=== PATIENT | female | born 1960 | race Caucasian/White ===

== ENCOUNTER 2018-03-22 08:32 | Emergency (ER) | payer MEDICAID ==
[~2018-03-22] VITALS: Ht 167.6 cm; Wt 77.1 kg
--- NOTE | 2018-03-22 08:35 | NUR ---
SEEN AND EXAMINED BY DR. CARDOZA.
--- NOTE | 2018-03-22 08:36 | NUR ---
PT [id number], HAD A SYNCOPAL EPISODE WHILE IN THE BATHROOM, PT IS AAOX2, LETHARGIC, NOT IN RESP DISTRESS, VSS, KEPT RESTED AND COMFORTABLE, HOOKED ON MONITOR, EKG DONE, WILL CONTINUE TO MONITOR
--- NOTE | 2018-03-22 08:39 | NUR ---
LABS DRAWNED AND SENT TO LAB.
[2018-03-22 08:54] LABS: BASOPHILS % (AUTO) 0.3 % (0.0-2.0); EOSINOPHILS % (AUTO) 0.3 % (0.0-6.0); HEMATOCRIT 40 % (33-45); HEMOGLOBIN 13.3 g/dL (11.5-14.8); MEAN CORPUSCULAR HGB CONC 33 g/dl (31.0-36.0); MEAN CORPUSCULAR VOLUME 90 fL (82-100); MONOCYTES # (AUTO) 0.5 /CMM (0.1-1.30); MONOCYTES % (AUTO) 13.2 % (2.0-12.0); NEUTROPHILS # (AUTO) 1.4 /CMM (1.8-8.9); NEUTROPHILS % (AUTO) 35.2 % (43.0-81.0); PLATELET COUNT (AUTO) 224 /CMM (150-450); RED BLOOD CELL COUNT(AUTO) 4.45 MIL/uL (4.0-5.2)
[2018-03-22] MEDS ORDERED: IV NS 0.9% 1,000 ML BAG IV ONE ×3 (09:00→12:30)
[2018-03-22 09:02] LABS: CALCIUM, SERUM 8.5 mg/dL (8.5-10.1); CARBON DIOXIDE 24 mmol/L (21-32); CHLORIDE 104 mmol/L (98-107); GLUCOSE 146 mg/dL (74-106); POTASSIUM 3.7 mmol/L (3.5-5.1); SODIUM SERUM 137 mmol/L (136-145); UREA NITROGEN, BLOOD 13 mg/dL (7-18)
[2018-03-22 09:08] LABS: ALANINE AMINOTRANSFERASE 44 U/L (12-78); ALBUMIN 3.2 g/dL (3.4-5.0); ALKALINE PHOSPHATASE 65 U/L (46-116); ASPARTATE AMINOTRANSFERASE 38 U/L (15-37); BILIRUBIN,DIRECT 0.1 mg/dL (0.0-0.2); BILIRUBIN,TOTAL 0.2 mg/dL (0.2-1.0)
[2018-03-22] MEDS ORDERED: IV NS 0.9% 250 ML IV ONE (09:17)
[2018-03-22] MEDS ORDERED: IOHEXOL-350 100 ML VIAL IV ONE (09:17)
[2018-03-22] MEDS ORDERED: CT SWABBABLE VALVE TRANS SET 1 EA INFUS.SET MC ONE (09:17)
--- NOTE | 2018-03-22 09:42 | NUR ---
PT BACK FROM CT PULMO ANGIOGRAM
--- NOTE | 2018-03-22 09:47 | NUR ---
pt c/o continued back pain. notified Dr Hardy, new order received. notified primary RN for administration.
[2018-03-22] MEDS ORDERED: KETOROLAC TROMETHAMINE INJ 30 MG/ML VIAL ONE (09:58)
[2018-03-22] MEDS ORDERED: KETOROLAC TROMETHAMINE INJ 30 MG/ML VIAL IV ONE (10:00)
--- NOTE | 2018-03-22 10:05 | NUR ---
URINE SAMPLE SENT TO LAB
[2018-03-22 10:20] LABS: APPEARANCE,URINE Clear (CLEAR); BILIRUBIN,URINE Negative (NEGATIVE); BLOOD, URINE Negative Ery/uL (NEGATIVE); COLOR,URINE Yellow (YELLOW); KETONES,URINE 15 (NEGATIVE); LEUKOCYTE ESTERASE ,URINE Negative (NEGATIVE); NITRITE, URINE Negative (NEGATIVE); PROTEIN,URINE Negative (NEGATIVE); UGLUCOSE Negative (NEGATIVE); UROBILINOGEN,URINE 0.2 EU/dL (0.2)
[2018-03-22 10:22] LABS: BACTERIA,URINE Rare /HPF (None Seen); RBC,URINE 0-2 /HPF (0-2); SQUAMOUS EPITHELIAL CELL,UR Few /HPF (None Seen); WBC,URINE 0-2 /HPF (0-3)
--- NOTE | 2018-03-22 11:39 | NUR ---
PT AMBULATED 100 FT, + DIZZYNESS, - PAIN
[2018-03-22] MEDS ORDERED: AZIT250T13 PO (14:22)
[2018-03-22] MEDS ORDERED: IV NS 0.9% 500 ML BAG IV ONE (14:30)
--- NOTE | 2018-03-22 14:30 | NUR ---
ADDENDUM: Intravenous End Time Documentation: Normal saline 1 liter (IV-WO) : start time: 1430 PM ; end time: 1530 PM : IV site: [facility] # 18 Port # 1
--- NOTE | 2018-03-22 15:07 | NUR ---
PT AWAITING TRANSFER TO [facility], PT STABLE AND COMFORTABLE AT THIS TIME
--- NOTE | 2018-03-22 15:29 | NUR ---
[facility] TRANSFER INFO: DIRECT ADMIT TO ROOM 218-A SOFYA PERRY REPORT: [phone] AMBULANCE INFO TO FOLLOW PER MENTAL HEALTH SPECIALIST.
--- NOTE | 2018-03-22 15:39 | NUR ---
AMBULANCE ETA [id number]
--- NOTE | 2018-03-22 15:48 | NUR ---
REPORT GIVEN TO NATANAEL COWART @ [facility], PT RESTING AND STABLE AT THIS TIME
--- NOTE | 2018-03-22 18:10 | NUR ---
PT TRTANSPORTED TO [facility] VIA AMBULANCE BLS, PT STABLE AND COMFORTABLE
[2018-03-22 18:12] VITALS: BP 110/74
== END 2018-03-22 18:13 | disposition short-term general hospital (02) ==
LOC: ER 08:34
DX: R55 Syncope and collapse (principal); I95.9 Hypotension, unspecified; J06.9 Acute upper respiratory infection, unspecified
CPT/HCPCS: 36415; 70450-TC; 71045-TC; 80048-TC; 80076-TC; 81000-TC; 83605-TC; 84484-TC; 85025-TC; 85730-TC; 87040-TC; 87400; J1885; J7030; J7050; Q9967

== ENCOUNTER 2018-03-24 21:33 | Emergency (ER) | payer MEDICAID ==
[~2018-03-24] VITALS: Ht 160 cm; Wt 68.0 kg
[~2018-03-24 21:33] MED LIST: AZIT250T13 PO
--- NOTE | 2018-03-24 21:55 | NUR ---
PT BIBS. COMP OF "NAUSEA AND VOMITING SINCE LEAVING HOSPITAL TODAY MORNING" NO SOB NOTED. NO ACUTE DISTRESS AT THIS TIME. PT AOX4. AMBULATORY W.STEADY GAIT. AWAITING MD COOK.
[2018-03-24] MEDS ORDERED: ONDANSETRON HCL/PF 4 MG/2 ML VIAL ONE (22:17)
[2018-03-24] MEDS ORDERED: ONDANSETRON HCL/PF 4 MG/2 ML VIAL IVP ONE (22:30)
[2018-03-24] MEDS ORDERED: IV NS 0.9% 1,000 ML BAG IV ONE (22:30)
[2018-03-24 23:50] LABS: BASOPHILS % (AUTO) 0.2 % (0.0-2.0); EOSINOPHILS % (AUTO) 0.1 % (0.0-6.0); HEMATOCRIT 37 % (33-45); HEMOGLOBIN 12.4 g/dL (11.5-14.8); LYMPHOCYTES # (AUTO) 0.8 /CMM (0.8-4.8); LYMPHOCYTES % (AUTO) 22.1 % (20.0-44.0); MEAN CORPUSCULAR HGB CONC 34 g/dl (31.0-36.0); MEAN CORPUSCULAR VOLUME 89 fL (82-100); MONOCYTES # (AUTO) 0.4 /CMM (0.1-1.30); MONOCYTES % (AUTO) 10.9 % (2.0-12.0); NEUTROPHILS # (AUTO) 2.3 /CMM (1.8-8.9); NEUTROPHILS % (AUTO) 66.7 % (43.0-81.0); PLATELET COUNT (AUTO) 214 /CMM (150-450); RED BLOOD CELL COUNT(AUTO) 4.09 MIL/uL (4.0-5.2); WHITE BLOOD COUNT (AUTO) 3.5 K/uL (4.3-11.0)
[2018-03-25 00:02] LABS: APPEARANCE,URINE Clear (CLEAR); BILIRUBIN,URINE Negative (NEGATIVE); BLOOD, URINE Negative Ery/uL (NEGATIVE); COLOR,URINE Light yellow (YELLOW); KETONES,URINE Negative (NEGATIVE); LEUKOCYTE ESTERASE ,URINE Negative (NEGATIVE); NITRITE, URINE Negative (NEGATIVE); PROTEIN,URINE Negative (NEGATIVE); UGLUCOSE Negative (NEGATIVE); UROBILINOGEN,URINE 0.2 EU/dL (0.2)
[2018-03-25 00:05] LABS: CALCIUM, SERUM 8.5 mg/dL (8.5-10.1); CARBON DIOXIDE 26 mmol/L (21-32); CHLORIDE 100 mmol/L (98-107); CREATININE 0.9 mg/dL (0.6-1.3); GLUCOSE 124 mg/dL (74-106); POTASSIUM 4.8 mmol/L (3.5-5.1); SODIUM SERUM 132 mmol/L (136-145); UREA NITROGEN, BLOOD 10 mg/dL (7-18)
[2018-03-25 00:11] LABS: ALANINE AMINOTRANSFERASE 41 U/L (12-78); ALKALINE PHOSPHATASE 65 U/L (46-116); ASPARTATE AMINOTRANSFERASE 33 U/L (15-37); BILIRUBIN,DIRECT 0.1 mg/dL (0.0-0.2); BILIRUBIN,TOTAL 0.3 mg/dL (0.2-1.0); LIPASE 97 U/L (73-393); TOTAL PROTEIN, SERUM 6.7 g/dL (6.4-8.2)
[2018-03-25 00:49] VITALS: BP 148/81
== END 2018-03-25 00:50 | disposition home or self-care (01) ==
LOC: ER 21:48
DX: R11.2 Nausea with vomiting, unspecified (principal)
CPT/HCPCS: 36415; 80048; 80076; 81001; 83690; 84484; 85025; 93005; 96361; 96374; 99284; A4606; J2405; J7030; 81000-TC